=== PATIENT | female | born 1945 ===

== ENCOUNTER 2023-05-24 06:17 | Day surgery (SDC) | payer OTHER ==
[~2023-05-24 06:17] MED LIST: TOPROL XL100 M1 PO
== END 2023-05-24 16:00 | disposition home or self-care (01) ==
LOC: CIR.AMB 06:17
PROVIDERS: ATTEND Obstetrics & Gynecology Gynecologic Oncology
DX: D07.1 Carcinoma in situ of vulva (principal); R59.0 Localized enlarged lymph nodes; I10 Essential (primary) hypertension; Z20.822 Contact with and (suspected) exposure to COVID-19; E78.5 Hyperlipidemia, unspecified